=== PATIENT | female | born 2000 | race Caucasian/White ===

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

== ENCOUNTER 2021-03-06 13:45 | Emergency (ER) | payer OTHER ==
[~2021-03-06] VITALS: Ht 165.6 cm; Wt 102.0 kg
[~2021-03-06 13:45] MED LIST changes: +MOTRIN800 MG PO
[2021-03-06 14:28] LABS: URINE BLOOD DIPSTICK SMALL (NEGATIVE); URINE COLOR YELLOW; URINE GLUCOSE - DIPSTICK NEGATIVE (NEGATIVE); URINE KETONE 15 mg/dL (NEGATIVE); URINE LEUK ESTERASE NEGATIVE (NEGATIVE); URINE PROTEIN - DIPSTICK 30 mg/dL (NEG-TRACE); URINE SPECIFIC GRAVITY >=1.030; URINE UROBILINOGEN - DIPSTICK 0.2 E.U./dL (0.2)
[2021-03-06 14:30] LABS: URINE BILIRUBIN - DIPSTICK NEGATIVE (NEGATIVE); URINE NITRITE - DIPSTICK NEGATIVE (Negative)
[2021-03-06 14:31] LABS: URINE SQUAMOUS EPITHELIAL CELL FEW EPI/hpf (0-FEW)
[2021-03-06 14:36] LABS: IMMATURE GRANULOCYTES 0.1 % (0.0-5.0); MEAN CORPUSCULAR HGB 27.3 pG CALC (26.0-32.0); MEAN CORPUSCULAR HGB CONC 32.2 g/dL CAL (32.0-36.0); NEUT# 10.01 thou/uL (2.00-7.15); RED BLOOD COUNT 5.24 mill/uL (4.20-5.60); RED CELL DISTRI WIDTH 12.5 % (11.5-15.5)
[2021-03-06 14:40] LABS: AMYLASE 72 u/l (30-110); LIPASE 50 u/l (23-300)
[2021-03-06 14:43] LABS: HEMATOCRIT 44.4 % (37.0-47.0); HEMOGLOBIN 14.3 g/dl (12.0-16.0); MEAN CELL VOLUME 84.7 fL CALC (80.0-100.0)
[2021-03-06 15:14] LABS: ALBUMIN 4.7 g/dL (3.2-5.0); ALKALINE PHOSPHATASE 69 u/l (38-126); ANION GAP 15 (6-22 (CALC)); BUN 14 mg/dL (8-21); BUN/CREATININE RATIO 20 (12-20 (CALC)); CARBON DIOXIDE 25 mmol/l (22-30); CHLORIDE 104 mmol/l (95-108); CREATININE 0.7 mg/dL (0.5-1.0); GFR > 60 ML/MIN (>=60 (CALC)); GFR FOR AFR.AMER. > 60 ML/MIN (>=60 (CALC)); POTASSIUM 3.9 mmol/l (3.5-5.1); SGOT/AST 25 u/l (14-36); SODIUM 140 mmol/l (137-146); TOTAL PROTEIN 8.5 g/dL (6.3-8.2)
[2021-03-06 15:44] LABS: BILIRUBIN, TOTAL 0.8 mg/dL (0.0-1.4)
[2021-03-06] MEDS ORDERED: ZOFRAN4 MG/TAB PO (15:57)
[2021-03-06 16:07] VITALS: BP 137/88
== END 2021-03-06 16:19 | disposition home or self-care (01) ==
LOC: ED 13:45
DX: R11.2 Nausea with vomiting, unspecified (principal); R19.7 Diarrhea, unspecified; R10.13 Epigastric pain; R10.11 Right upper quadrant pain; R10.12 Left upper quadrant pain; F41.9 Anxiety disorder, unspecified; F32.A Depression, unspecified